=== PATIENT | female | born 1980 | race Caucasian/White ===

== ENCOUNTER 2020-09-12 01:30 | Emergency (ER) | payer MEDICARE, OTHER ==
[~2020-09-12] VITALS: Ht 182.9 cm; Wt 90.7 kg
[2020-09-12 01:39] VITALS: BP 146/80
== END 2020-09-12 04:15 | disposition home or self-care (01) ==
LOC: ER 01:30
DX: Z00.00 Encounter for general adult medical examination without abnormal findings (principal); Z59.0 Homelessness